=== PATIENT | female | born 1935 | race Caucasian/White ===

== ENCOUNTER 2017-05-17 15:42 | Observation (INO) | payer OTHER ==
[~2017-05-17] VITALS: Ht 160 cm; Wt 59.4 kg
[~2017-05-17 15:42] MED LIST: ALPRAZOLAM0.25 MG PO; GABAPENTIN100 MG PO; HYDROCHLOROTH12.5 MG PO; INDOMETHACIN25 MG PO; NEXIUM40 MG PO; PAROXETINE HCL30 MG PO; PROMETHAZINE HC25 M1 PO; SIMVASTATIN40 MG PO; TOPROL XL25 MG PO; ULTRAM 50MG50 MG PO; ZESTRIL20 MG PO
[2017-05-17 16:15] LABS: BASOPHILS % 0.4 % (0.0-1.0); EOSINOPHILS # (AUTO) 0.1 (0.0-0.4); EOSINOPHILS % 1.3 % (0.0-6.0); HEMATOCRIT 33.6 % (34.2-44.1); HEMOGLOBIN 10.8 g/dL (12.0-16.0); LYMPHOCYTES % 13.4 % (18.0-39.1); MEAN CORPUSCULAR HEMOGLOBIN 26.3 pg (28-32); MEAN CORPUSCULAR HGB CONC 32.1 g/dL (31-35); MONOCYTES # (AUTO) 0.6 (0.2-0.8); MONOCYTES % 7.2 % (4.4-11.3); NEUTROPHILS # (AUTO) 5.9 (2.1-6.9); NEUTROPHILS % 77.4 % (38.7-80.0); PLATELET COUNT 226 x10e3/uL (140-360); RED CELL DISTRIBUTION WIDTH 15.4 % (11.7-14.4)
[2017-05-17] MEDS ORDERED: ASPIRIN 81 MG CHEW TAB PO ONE (16:15)
[2017-05-17 16:20] LABS: INR 1.11; PROTHROMBIN TIME 13.5 seconds (11.9-14.5)
[2017-05-17 16:25] LABS: PARTIAL THROMBOPLASTIN TIME 53.2 seconds (23.8-35.5)
[2017-05-17 16:27] LABS: ALBUMIN 3.5 g/dL (3.5-5.0); ANION GAP 12.5 mmol/L (8-16); CALCIUM 8.8 mg/dL (8.4-10.2); CREATININE, SERUM 0.93 mg/dL (0.57-1.11); POTASSIUM 3.5 mmol/L (3.5-5.1)
[2017-05-17 16:34] LABS: CREATINE KINASE MB 1.3 ng/mL (0.00-5.00)
--- NOTE | 2017-05-17 16:35 | Diagnostic Imaging Report ---
PROCEDURE: CHEST SINGLE (PORTABLE) 1620 hrs. COMPARISON: 05/31/14 INDICATIONS: CHEST PAIN FINDINGS: LUNGS: Diffusely hyperinflated. Pulmonary veins have increased in size in the interim. The interstitium is mildly prominent but appears chronic. No mass or consolidation. PLEURA: No effusions or pneumothorax. HEART \T\ MEDIASTINUM: The heart is mildly enlarged. The aorta is ectatic. Pulmonary con are prominent, similar to previous exam BONES \T\ SOFT TISSUES: No focal osseous lesions. Soft tissues are unremarkable.. CONCLUSION: 1. Pulmonary hyperinflation suggestive of small airway disease. 2. Pulmonary venous hypertension has progressed in the interim. Prominence of the pulmonary con are suggestive of pulmonary artery hypertension. 3. Mild cardiomegaly. No evidence of CHF. Dictated by: Latonya Barajas M.D. on 05/17/2017 at 16:45 Electronically approved by: Latonya Barajas M.D. on 05/17/2017 at 16:45
[2017-05-17] MEDS ORDERED: DILTIAZEM HCL 5 MG/ML 5 ML VIAL IV STA (16:55)
[2017-05-17] MEDS ORDERED: AMLODIPINE BESY10 MG PO (17:13)
[2017-05-17] MEDS ORDERED: ASPIR 8181 MG PO (17:13)
[2017-05-17] MEDS ORDERED: DONEPEZIL HCL10 MG PO (17:13)
[2017-05-17] MEDS ORDERED: MULTIPLE VITAM1 EAC2 PO (17:13)
[2017-05-17] MEDS ORDERED: CLARITAN PO (17:13)
[2017-05-17] MEDS ORDERED: DILTIAZEM HCL 100 ML IV STA (17:17)
[2017-05-17 17:27] LABS: BILIRUBIN,URINE NEGATIVE (NEGATIVE); CLARITY,URINE HAZY (CLEAR); COLOR,URINE YELLOW (YELLOW); KETONES,URINE NEGATIVE (NEGATIVE); LEUKOCYTE ESTERASE ,URINE TRACE (NEGATIVE); URINE UROBILINOGEN 0.2 mg/dL (0.2 - 1)
[2017-05-17 17:28] LABS: NITRITE,URINE POSITIVE (NEGATIVE); PROTEIN,URINE DIPSTICK TRACE (NEGATIVE)
[2017-05-17] MEDS ORDERED: ENOXAPARIN SODIUM INJ 100 MG/ML SYR SC SCH (17:30)
[2017-05-17 17:46] LABS: BACTERIA,URINE MODERATE /HPF; EPITHELIAL CELLS,URINE FEW /LPF; WBC,URINE (MAN) 0-5 /HPF (0-5)
[2017-05-17] MEDS: ENOXAPARIN INJ 80 MG/0.8 ML SYR SC SCH (17:58)
[2017-05-17] MEDS ORDERED: DILTIAZEM HCL IV SOLN 125 MG in SODIUM CHLORIDE 0.9% 100 ML IV SCH ×4 (18:00)
[2017-05-17] MEDS: SODIUM CHLORIDE 0.9% 1000ML 1,000 ML IV SCH (18:19)
[2017-05-17] MEDS ORDERED: ONDANSETRON HCL INJ 2 MG/ML VIAL IV PRN (19:30)
[2017-05-17] MEDS ORDERED: NITROGLYCERIN 0.4 MG SUBL SL PRN (19:30)
[2017-05-17] MEDS: CEFTRIAXONE SOD 1 GM VIAL IV SCH (20:33)
[2017-05-17] MEDS: FAMOTIDINE 20 MG TAB PO SCH (20:33)
[2017-05-17 22:45] VITALS: BP 160/67
[2017-05-18] VITALS (8 sets, daily range): BP systolic 148–164; BP diastolic 67–76
[2017-05-18 00:58] LABS: CREATINE KINASE MB 2.6 ng/mL (0.00-5.00)
[2017-05-18] MEDS: SODIUM CHLORIDE 0.9% 1000ML 1,000 ML IV SCH (02:28)
[2017-05-18] MEDS: ENOXAPARIN INJ 80 MG/0.8 ML SYR SC SCH (05:19)
[2017-05-18 06:20] LABS: BASOPHILS % 0.3 % (0.0-1.0); EOSINOPHILS # (AUTO) 0.1 (0.0-0.4); HEMATOCRIT 28.8 % (34.2-44.1); HEMOGLOBIN 9.3 g/dL (12.0-16.0); LYMPHOCYTES # (AUTO) 1.2 (1.0-3.2); LYMPHOCYTES % 19.1 % (18.0-39.1); MEAN CORPUSCULAR HEMOGLOBIN 26.3 pg (28-32); MEAN CORPUSCULAR HGB CONC 32.3 g/dL (31-35); MEAN CORPUSCULAR VOLUME 81.6 fL (81-99); MONOCYTES # (AUTO) 0.5 (0.2-0.8); MONOCYTES % 8.8 % (4.4-11.3); NEUTROPHILS # (AUTO) 4.2 (2.1-6.9); NEUTROPHILS % 69.5 % (38.7-80.0); PLATELET COUNT 210 x10e3/uL (140-360); RED BLOOD COUNT 3.53 x10e6/uL (3.6-5.1); RED CELL DISTRIBUTION WIDTH 15.6 % (11.7-14.4)
[2017-05-18 06:42] LABS: ANION GAP 13.4 mmol/L (8-16); BLOOD UREA NITROGEN 12 mg/dL (7-26); BUN/CREATININE RATIO 14 (6-25); CALCIUM 8.3 mg/dL (8.4-10.2); CARBON DIOXIDE 22 mmol/L (22-29); CHLORIDE 110 mmol/L (98-107); CHOL/HDL RATIO 3.2 (3.0-3.6); CHOLESTEROL 157 MD/DL (0-199); CREATININE, SERUM 0.85 mg/dL (0.57-1.11); EST GLOMERULAR FILTRATION RATE > 60 ML/MIN (60-); GLUCOSE 87 mg/dL (74-118); HDL CHOLESTEROL 49 MG/DL (40-60); LDL CHOLESTEROL 92 MG/DL (60-130); MAGNESIUM 1.7 MG/DL (1.3-2.1); POTASSIUM 3.4 mmol/L (3.5-5.1); SODIUM 142 mmol/L (136-145); TRIGLYCERIDES 78 MG/DL (0-149)
[2017-05-18] MEDS: FAMOTIDINE 20 MG TAB PO SCH ×2 (07:30→20:13)
--- NOTE | 2017-05-18 08:48 | History and Physical ---
PCP: Dr. Karl Ball CHIEF COMPLAINT: Palpitations, PAF, and acute exacerbation of COPD. HISTORY: Patient is an 81-year-old female who came in with some dizziness and palpitations. The patient had a brief paroxysmal atrial fibrillation that converted to normal sinus rhythm after Cardizem treatment. The patient is stable now. She is very hard of hearing. The patient has no wheezing now. She is not having any shortness of breath. As a matter of fact, she seem to be at baseline. PAST MEDICAL HISTORY: Hypertension, baseline dementia, anxiety disorder, neuropathy, COPD, former smoker. PAST SURGICAL HISTORY: Noncontributory. SOCIAL HISTORY: Patient lives with her son. She is not smoking now. She has no alcohol consumption. ALLERGIES: MERCUROCHROME, PLASTIC TAPE, IODINE, MORPHINE, AND . HOME MEDICATIONS: Norvasc, aspirin, Aricept, Neurontin, Zestril, metoprolol succinate, multivitamins, Paxil, and Claritin. REVIEW OF SYSTEMS: No chest pain. No shortness of breath. She seems comfortable. PHYSICAL EXAMINATION VITAL SIGNS: Temperature is 98, blood pressure 154/73, pulse rate 81, respirations 18. GENERAL: The patient is not in acute distress. He is awake. HEENT: Normocephalic, atraumatic and anicteric. NECK: Supple grossly. PULMONARY: Clear. CARDIOVASCULAR: Regular rate and rhythm. ABDOMEN: Soft and unremarkable. EXTREMITIES: No gross cyanosis or edema. NEUROLOGIC: No gross focal deficit. LABORATORY: WBC is 6, hemoglobin 9.3, hematocrit is 28.8, and platelets 210,000. Chemistry: Sodium is 142, potassium 3.4, chloride 110, bicarb 22, BUN 12, creatinine 0.8, glucose is 87. Cardiac enzymes were negative. BNP is 439. LDL is 92. Chest x-ray consistent with COPD. IMPRESSION 1. Paroxysmal atrial fibrillation. 2. Acute asthma and chronic obstructive pulmonary disease, much improved. 3. Palpitations, resolved. 4. Very hard of hearing baseline. 5. Hypertension. 6. Dementia. PLAN: Start the patient on inhaler of Xopenex p.r.n. Rocephin 1 g daily. Azithromycin p.o. Resume home medications. Monitor the patient closely. Will obtain CT of the chest without contrast for now. Job#: [id number] [facility]
[2017-05-18 08:53] LABS: THYROID STIMULATING HORMONE 3.646 uIU/mL (0.350-4.940)
[2017-05-18] MEDS ORDERED: GABAPENTIN 100 MG CAP PO SCH ×2 (09:00→21:00)
[2017-05-18] MEDS: MULTIVITAMINS/MINERALS TAB PO SCH (09:00)
[2017-05-18] MEDS: SENNA-S TABLET PO SCH (09:00)
[2017-05-18] MEDS: PAROXETINE HCL 20 MG TAB PO SCH (09:00)
[2017-05-18] MEDS ORDERED: POTASSIUM CHLORIDE 10 MEQ TABCR PO ONE (09:00)
[2017-05-18] MEDS: DILTIAZEM HCL 120 MG CAP CD PO SCH (09:00)
[2017-05-18] MEDS: ASPIRIN 81 MG ENTERIC COATED PO SCH (09:00)
[2017-05-18 09:33] LABS: CREATINE KINASE MB 2.3 ng/mL (0.00-5.00)
--- NOTE | 2017-05-18 09:34 | Consultation ---
DATE OF CONSULTATION: May 18, 2017 CARDIOLOGY CONSULTATION REASON FOR CONSULTATION: Paroxysmal AFib. HPI: This is an 81-year-old female that presented with palpitations, near syncope and chest pain. According to the patient and son at the bedside, she started having irregular rapid heartbeats accompanied with dizziness and weakness. She stated that her dizziness got worse by ambulation and gets better with rest. She described the chest discomfort as a constant pressure on a scale of 4/10 with no radiation. She denies any diaphoresis, any nausea, vomiting, or shortness of breath. According to the son also, she just saw her composition weatherboard installer at the [place] [facility] in April, and everything was okay. Her EKG showed normal sinus rhythm with some PACs. Troponin was 0.5 positive. PAST MEDICAL HISTORY: Dementia, hypertension, hyperlipidemia, history of anemia. PAST SURGICAL HISTORY: Hysterectomy, appendectomy and cholecystectomy. FAMILY HISTORY: Positive for high blood pressure, cancer, CAD, and TIAs. SOCIAL HISTORY: No smoking. No drinking. She lives at senior assisted-living apartment, but right now she is staying with her son. MEDICATION: See med list. ALLERGIES: SEE CHART. SHE HAS MULTIPLE ALLERGIES. REVIEW OF SYSTEMS: Negative except those mentioned above. PHYSICAL EXAMINATION VITAL SIGNS: Temperature 98, heart rate 81, blood pressure 154/73, respirations 17, oxygen saturation 95% on room air. GENERAL: She is on alert and awake, but hard of hearing. HEENT: Mucous membrane moist. NECK: Supple. LUNGS: Bilateral clear to auscultation. CARDIOVASCULAR: Irregular. ABDOMEN: Soft. NEUROLOGICAL: Intact. She is able to move all extremities. EXTREMITIES: Bilateral lower extremities with no edema. LABS: Sodium 142, potassium 3.4, chloride 110, CO2 22, BUN 12, creatinine 0.85, glucose 87. White blood cells 6.01, hemoglobin 9.3, hematocrit 28.8, and platelets 210,000. PT 13.5, PTT 53.2 and INR 1.11. IMPRESSION 1. Chest pain. 2. Paroxysmal atrial fibrillation. 3. Elevated troponin. 4. Hypertension. 5. Anemia. 6. History of dementia. ASSESSMENT AND PLAN: She is pending an echocardiogram to assess the LV and the valve function. Chest x-ray showing some evidence of COPD and pulmonary hypertension. Her heart rate is back to normal sinus rhythm with some PACs. She was already started on Xarelto by the primary doctor. I discussed the implication of the elevated troponin to the son, and recommended a Lexiscan Myoview to rule out any occlusion. The son stated that he will wait and follow up with the composition weatherboard installer as an outpatient. Potassium has been replaced. She is pending TSH and BNP was 439. Troponin could be elevated also due to the AFib with RVR. She was given Cardizem in the ER. Further cardiac workup pending clinical course. Thank you for this consultation. DICTATED BY GEOVANNA DEAL NP Job#: [id number] [facility]
--- NOTE | 2017-05-18 13:35 | Diagnostic Imaging Report ---
PROCEDURE: CT CHEST WITHOUT CONTRAST CT scan of the chest WITHOUT intravenous contrast, using standard protocol. TECHNIQUE: The chest was scanned utilizing a multidetector helical scanner from the apex to the level of the adrenal glands. No IV contrast was administered per physician's request. Coronal and sagittal multiplanar reformations were obtained. COMPARISON: [facility], DX, CHEST SINGLE (PORTABLE), 05/17/2017, 16:20. INDICATIONS: SHORTNESS OF BREATH FINDINGS: Exam mildly limited by breathing motion artifact in the lower lobes Lines/tubes: None. Lungs and Airways: Intralobular septal thickening, predominantly noted in the upper lobes (series 3, image 24). Diffuse groundglass opacities noted predominantly in the central aspect of bilateral upper and lower lobes extending from the con, with relative sparing of the periphery. No consolidation. Mild compressive atelectasis of the right lower lobe. 2 mm pulmonary nodule in the right upper lobe (series 3, image 25). No other pulmonary nodules. Linear opacities in bilateral lower lobes, likely represent subsegmental atelectasis or scarring. Moderate central bronchial wall thickening, worse in the right lower lobe, left lower lobe and right middle lobe (for example, series 3, image 66). Prominence of the pulmonary vessels, particularly in the lower lobes. Increased soft tissue density surrounding the proximal right lower lobe bronchus (series 2, images 63-65). Pleura: Trace right pleural effusion. Heart and mediastinum: Thyroid is unremarkable. Moderate cardiomegaly, with prominence of the left atrium. Atherosclerotic calcification of the aortic valves, thoracic aorta and coronary arteries. Aorta is non-aneurysmal. Main pulmonary artery is enlarged, measuring 4.0 cm. Lymph nodes: No mediastinal adenopathy. Enlarged left axillary lymph node, measuring 1.0 cm in short axis. No internal mammary nodes. Difficult to assess for hilar adenopathy given the lack of intravenous contrast. Abdomen: Limited views of the upper abdomen show no abnormality within the visualized liver, spleen or pancreas. Cholecystectomy clips. Thickening of the stomach fundus, which may be partly due to under distention. Bones: No aggressive lytic lesions. Multilevel degenerative disc changes in the thoracic spine. 1.3 cm asymmetric soft tissue density in the left breast, with punctate calcification (series 2, image 71 and coronal image 49). Punctate calcification is also noted in the right breast (series 2, image 64). IMPRESSION: 1. Findings in both lungs suggestive of interstitial edema, in the setting of moderate cardiomegaly. 2. Increased soft tissue density surrounding the proximal right lower lobe bronchus, which is indeterminate. Adenopathy, prominent vessels or mass are diagnostic considerations, however, exam is limited by lack of intravenous contrast. 3. Moderate central bronchial wall thickening, predominantly in the lower lobes, and right middle lobe, likely reflect sequela of chronic bronchitis. 4. Enlarged left axillary lymph node. There is a 1.3 cm asymmetric soft tissue density in the left breast. Recommend mammography for further evaluation, given the diagnostic consideration of breast neoplasm. Bryon Alvarez M.D. Dictated by: Bryon Alvarez M.D. on 05/18/2017 at 13:45 Electronically approved by: Bryon Alvarez M.D. on 05/18/2017 at 13:45
[2017-05-18] MEDS ORDERED: RIVAROXABAN 10 MG TABLET PO SCH (17:00)
[2017-05-18] MEDS: CEFTRIAXONE SOD 1 GM VIAL IV SCH (20:13)
[2017-05-18] MEDS ORDERED: ACETAMINOPHEN 325 MG TAB PO PRN (21:00)
[2017-05-18] MEDS ORDERED: DONEPEZIL HCL 5 MG TAB PO SCH (21:00)
[2017-05-19] VITALS: BP 158/79
[2017-05-19 05:00] VITALS: BP 159/74
[2017-05-19 06:58] LABS: BASOPHILS % 0.6 % (0.0-1.0); EOSINOPHILS # (AUTO) 0.2 (0.0-0.4); EOSINOPHILS % 3.4 % (0.0-6.0); HEMATOCRIT 30.1 % (34.2-44.1); HEMOGLOBIN 9.8 g/dL (12.0-16.0); LYMPHOCYTES # (AUTO) 1.2 (1.0-3.2); LYMPHOCYTES % 25.2 % (18.0-39.1); MEAN CORPUSCULAR HEMOGLOBIN 26.4 pg (28-32); MEAN CORPUSCULAR HGB CONC 32.6 g/dL (31-35); MEAN CORPUSCULAR VOLUME 81.1 fL (81-99); MONOCYTES # (AUTO) 0.4 (0.2-0.8); MONOCYTES % 9.2 % (4.4-11.3); NEUTROPHILS # (AUTO) 2.9 (2.1-6.9); NEUTROPHILS % 61.2 % (38.7-80.0); PLATELET COUNT 220 x10e3/uL (140-360); RED BLOOD COUNT 3.71 x10e6/uL (3.6-5.1); RED CELL DISTRIBUTION WIDTH 15.3 % (11.7-14.4)
[2017-05-19 07:23] LABS: ANION GAP 11.6 mmol/L (8-16); BLOOD UREA NITROGEN 8 mg/dL (7-26); BUN/CREATININE RATIO 10 (6-25); CALCIUM 8.8 mg/dL (8.4-10.2); CARBON DIOXIDE 26 mmol/L (22-29); CHLORIDE 107 mmol/L (98-107); CREATININE, SERUM 0.79 mg/dL (0.57-1.11); EST GLOMERULAR FILTRATION RATE > 60 ML/MIN (60-); GLUCOSE 90 mg/dL (74-118); POTASSIUM 3.6 mmol/L (3.5-5.1); SODIUM 141 mmol/L (136-145)
[2017-05-19 07:37] VITALS: BP 169/84
[2017-05-19] MEDS: MULTIVITAMINS/MINERALS TAB PO SCH (08:30)
[2017-05-19] MEDS: PAROXETINE HCL 20 MG TAB PO SCH (08:30)
[2017-05-19] MEDS: DILTIAZEM HCL 120 MG CAP CD PO SCH (08:30)
[2017-05-19] MEDS: ASPIRIN 81 MG ENTERIC COATED PO SCH (08:30)
[2017-05-19] MEDS: SENNA-S TABLET PO SCH (08:30)
[2017-05-19] MEDS: FAMOTIDINE 20 MG TAB PO SCH (08:30)
--- NOTE | 2017-05-19 09:24 | Discharge Summary ---
Patient was placed in observation. PRIMARY CARE PHYSICIAN: Dr. Karl Ball SECURITY CONTROL CENTER OPERATOR: Dr. Tong Solis FINAL DIAGNOSES 1. Acute bronchitis associated with upper respiratory infection, wheezing and shortness of breath. 2. Paroxysmal atrial fibrillation secondary to the above. 3. Baseline hypertension. 4. Pulmonary congestion secondary to multiple factors as above. Patient is an 81-year-old female came in with cough and shortness of breath. She also had atrial fibrillation, paroxysmal. However, after Cardizem her atrial fibrillation converted to normal sinus rhythm. The patient is doing much better now. She did have some near passing out, but most likely secondary to upper respiratory infection. She is doing better with antibiotics. The microbiology urinary culture was contamination. On urinalysis, she does have trace leukocyte esterase, moderate bacteria. Hematology: WBC is 4.7, hemoglobin 9.8, hematocrit 30.2, and platelets is 220,000. Her iron level is low due to her chronic anemia and there is no sign of bleed. Patient is otherwise stable. Chemistry panel unremarkable. Imaging test: CT of the chest showed that the patient does have bronchitis predominately in the lower lobe. She does have a 1.3 cm soft tissue density in the left breast where she is instructed to have a mammogram if not yet done as an outpatient. The patient has some interstitial edema as mentioned. Her ejection fraction on echocardiogram was 60%. There is left atrial enlargement. There is moderate to severe mitral regurgitation. The patient is otherwise stable at this time. She has been cleared by Dr. Solis for discharge home. Follow up with [place] physician and cardiology. Patient is instructed have a mammogram if not yet done for the soft tissue density in the left breast. The patient is otherwise stable. The patient will be discharged home today. Resume home medications with adjustment of: 1. Lisinopril from 40 to 20 mg. 2. She will get prednisone 10 mg once a day for 3 days and then 5 mg once a day for 3 days and then stop. 3. Levaquin 250 mg daily for 5 days. 4. Lopressor 50 mg b.i.d. 5. Lasix 20 mg daily. 6. Potassium 10 mEq daily. 7. Tessalon Perle 100 mg q.4 h. p.r.n. for cough. 8. ProAir 1-2 puffs q.4 h. as needed. Patient is stable to discharge home today. She will stop the Toprol-Xl 25 mg and take Lopressor 50 mg as mentioned. Patient is stable. Job#: [id number] [facility]
[2017-05-19 11:38] VITALS: BP 160/80
[2017-05-19] MEDS ORDERED: LOPRESSOR25 MG PO (12:40)
[2017-05-19] MEDS ORDERED: LEVAQUIN250 MG PO (12:40)
[2017-05-19] MEDS ORDERED: POTASSIUM CHLO10 ME1 PO (12:40)
[2017-05-19] MEDS ORDERED: LASIX20 MG PO (12:40)
[2017-05-19] MEDS ORDERED: TESSALON PERLE100 MG PO (12:41)
[2017-05-19] MEDS ORDERED: PROAIR HFA INH8.5 GM IH (12:42)
== END 2017-05-19 13:32 | disposition home or self-care (01) ==
LOC: ER 15:42 → ERHOLD 20:03 → IMCU 22:08
PROVIDERS: ADMIT Internal Medicine; ATTEND Internal Medicine
DX: J44.0 Chronic obstructive pulmonary disease with (acute) lower respiratory infection (principal); I48.0 Paroxysmal atrial fibrillation; I95.89 Other hypotension; I20.9 Angina pectoris, unspecified; F03.90 Unspecified dementia, unspecified severity, without behavioral disturbance, psychotic disturbance, mood disturbance, and anxiety; H91.90 Unspecified hearing loss, unspecified ear; D64.9 Anemia, unspecified; J20.9 Acute bronchitis, unspecified; I10 Essential (primary) hypertension; R09.89 Other specified symptoms and signs involving the circulatory and respiratory systems; I34.0 Nonrheumatic mitral (valve) insufficiency
CPT/HCPCS: 36415 ×3; 71045; 71250; 80048 ×2; 80053; 80061; 81001; 82550 ×2; 82553 ×2; 82607; 82746; 83540; 83735; 83880; 84443; 84466; 84484 ×2; 85025 ×3; 85610; 85730; 87086; 87186; 87400; 93005; 93306; 99284; G0378 ×3; J0696 ×2; J1650 ×2; J7030 ×2; J7050

== ENCOUNTER 2017-09-24 14:52 | Inpatient (IN) | payer OTHER ==
[~2017-09-24] VITALS: Ht 152.4 cm; Wt 60.6 kg
[~2017-09-24 14:52] MED LIST changes: +AMLODIPINE BESY10 MG PO; +ASPIR 8181 MG PO; +CLARITAN PO; +DONEPEZIL HCL10 MG PO; +LASIX20 MG PO; +LEVAQUIN250 MG PO; +LOPRESSOR25 MG PO; +MULTIPLE VITAM1 EAC2 PO; +POTASSIUM CHLO10 ME1 PO; +PROAIR HFA INH8.5 GM IH; +TESSALON PERLE100 MG PO
[2017-09-24] MEDS ORDERED: SODIUM CHLORIDE 0.9% 1000ML 1,000 ML IV STA (15:22)
[2017-09-24] MEDS ORDERED: DILTIAZEM HCL 60 MG TAB PO ONE (15:30)
[2017-09-24 15:34] LABS: BASOPHILS % 0.3 % (0.0-1.0); EOSINOPHILS # (AUTO) 0.1 (0.0-0.4); EOSINOPHILS % 1.5 % (0.0-6.0); LYMPHOCYTES % 14.3 % (18.0-39.1); MEAN CORPUSCULAR HEMOGLOBIN 25.5 pg (28-32); MEAN CORPUSCULAR HGB CONC 31.3 g/dL (31-35); MEAN CORPUSCULAR VOLUME 81.6 fL (81-99); MONOCYTES # (AUTO) 0.6 (0.2-0.8); MONOCYTES % 9.2 % (4.4-11.3); NEUTROPHILS # (AUTO) 4.9 (2.1-6.9); NEUTROPHILS % 74.2 % (38.7-80.0); PLATELET COUNT 248 x10e3/uL (140-360); RED BLOOD COUNT 3.92 x10e6/uL (3.6-5.1); RED CELL DISTRIBUTION WIDTH 15.6 % (11.7-14.4)
[2017-09-24 15:41] LABS: INR 1.2; PROTHROMBIN TIME 14.3 seconds (11.9-14.5)
[2017-09-24 15:42] LABS: PARTIAL THROMBOPLASTIN TIME 53.6 seconds (23.8-35.5)
--- NOTE | 2017-09-24 15:43 | Diagnostic Imaging Report ---
PROCEDURE: A single AP view of the chest. COMPARISON: Patients [facility], CT, CT CHEST WO, 05/18/2017, 10:24. INDICATIONS: AFIB, SOB PER FAMILY, PT AMS UNABLE TO FOLLOW INSTRUCTIONS FINDINGS: See impression. IMPRESSION: 1. moderate cardiomegaly, with central pulmonary venous congestion and bilateral perihilar interstitial opacities consistent with interstitial edema. Findings likely represent decompensated CHF. 2. Likely small right pleural effusion and associated right lower lobe atelectasis. 3. No definite consolidation. 4. No acute bony abnormalities. Bryon Alvarez M.D. Dictated by: Bryon Alvarez M.D. on 09/24/2017 at 15:47 Electronically approved by: Bryon Alvarez M.D. on 09/24/2017 at 15:47
[2017-09-24 15:50] LABS: ALANINE AMINOTRANSFERASE 13 IU/L (0-55); ALBUMIN 3.8 g/dL (3.5-5.0); ALBUMIN/GLOBULIN RATIO 1.1 (0.8-2.0); ALKALINE PHOSPHATASE 96 IU/L (40-150); ANION GAP 12.4 mmol/L (8-16); BLOOD UREA NITROGEN 17 mg/dL (7-26); BUN/CREATININE RATIO 13 (6-25); CALCIUM 9.3 mg/dL (8.4-10.2); CARBON DIOXIDE 25 mmol/L (22-29); CHLORIDE 100 mmol/L (98-107); CREATINE KINASE 53 IU/L (29-168); CREATININE, SERUM 1.28 mg/dL (0.57-1.11); EST GLOMERULAR FILTRATION RATE 40 ML/MIN (60-); GLUCOSE 96 mg/dL (74-118); POTASSIUM 4.4 mmol/L (3.5-5.1); SODIUM 133 mmol/L (136-145)
[2017-09-24] MEDS ORDERED: DIGOXIN INJ 0.25 MG/ML 2 ML AMP IV ONE ×3 (16:15→19:00)
[2017-09-24] MEDS ORDERED: DIGOXIN INJ 0.25 MG/ML 2 ML AMP IV NR (17:45)
[2017-09-24] MEDS ORDERED: FUROSEMIDE INJ 10 MG/ML 4 ML VIAL IV SCH ×2 (18:00→21:00)
[2017-09-24] MEDS ORDERED: ASPIRIN 81 MG CHEW TAB PO ONE (18:15)
[2017-09-24] MEDS ORDERED: ENOXAPARIN SODIUM INJ 100 MG/ML SYR SC SCH (18:15)
[2017-09-24] MEDS: ENOXAPARIN SOD INJ 60 MG/0.6 ML SYR SC SCH (19:00)
[2017-09-24 20:00] VITALS: BP 134/78
[2017-09-24 20:18] VITALS: BP 134/78
[2017-09-24] MEDS ORDERED: CLARITIN-D 241 EACH PO (20:39)
[2017-09-24] MEDS ORDERED: ASPIRIN325 MG PO (20:39)
[2017-09-24] MEDS ORDERED: CLARITIN10 MG PO (20:41)
[2017-09-24] MEDS ORDERED: METOPROLOL TARTRATE 25 MG TAB PO SCH (21:00)
[2017-09-24] MEDS ORDERED: METOPROLOL TARTRATE 50 MG TAB PO SCH (21:00)
[2017-09-24] MEDS ORDERED: METOPROLOL TARTRATE INJ 1 MG/ML VIAL IV PRN (21:00)
[2017-09-24] MEDS ORDERED: MAGNESIUM SULFATE 2GM/50ML 50 ML IV ONE (21:00)
[2017-09-24 21:01] LABS: BILIRUBIN,URINE NEGATIVE (NEGATIVE); CLARITY,URINE CLEAR (CLEAR); COLOR,URINE YELLOW (YELLOW); KETONES,URINE NEGATIVE (NEGATIVE); LEUKOCYTE ESTERASE ,URINE NEGATIVE (NEGATIVE); NITRITE,URINE NEGATIVE (NEGATIVE); PROTEIN,URINE DIPSTICK NEGATIVE (NEGATIVE); URINE UROBILINOGEN 0.2 mg/dL (0.2 - 1)
[2017-09-24 21:14] LABS: EPITHELIAL CELLS,URINE RARE /LPF; MUCUS,URINE FEW (RARE); RBC,URINE 0-5 /HPF (0-5); WBC,URINE (MAN) 0-5 /HPF (0-5)
[2017-09-24] MEDS ORDERED: AMIODARONE HCL 200 MG TAB PO ONE (21:30)
[2017-09-24 21:45] VITALS: BP 134/78
[2017-09-24] MEDS: GABAPENTIN 100 MG CAP PO SCH (21:45)
[2017-09-24] MEDS: ACETAMINOPHEN 325 MG TAB PO PRN (21:45)
[2017-09-24 23:52] LABS: CREATINE KINASE MB 1.6 ng/mL (0-5.0)
[2017-09-25] VITALS (8 sets, daily range): BP systolic 101–131; BP diastolic 66–81
[2017-09-25] MEDS: ENOXAPARIN SOD INJ 60 MG/0.6 ML SYR SC SCH (06:18)
[2017-09-25 07:34] LABS: BASOPHILS % 0.2 % (0.0-1.0); EOSINOPHILS # (AUTO) 0.1 (0.0-0.4); EOSINOPHILS % 1.9 % (0.0-6.0); HEMATOCRIT 28.4 % (34.2-44.1); HEMOGLOBIN 9.1 g/dL (12.0-16.0); LYMPHOCYTES # (AUTO) 0.9 (1.0-3.2); LYMPHOCYTES % 21.2 % (18.0-39.1); MEAN CORPUSCULAR HEMOGLOBIN 26.1 pg (28-32); MEAN CORPUSCULAR VOLUME 81.4 fL (81-99); MONOCYTES # (AUTO) 0.4 (0.2-0.8); MONOCYTES % 8.8 % (4.4-11.3); NEUTROPHILS # (AUTO) 2.8 (2.1-6.9); NEUTROPHILS % 67.7 % (38.7-80.0); PLATELET COUNT 229 x10e3/uL (140-360); RED BLOOD COUNT 3.49 x10e6/uL (3.6-5.1); RED CELL DISTRIBUTION WIDTH 15.4 % (11.7-14.4)
[2017-09-25 07:50] LABS: CALCIUM 8.7 mg/dL (8.4-10.2); CREATININE, SERUM 1.11 mg/dL (0.57-1.11)
[2017-09-25 08:18] LABS: CREATINE KINASE MB 1.3 ng/mL (0-5.0)
[2017-09-25] MEDS ORDERED: NON-FORMULARY MEDICATION (Paroxetine Hcl 30 MG) PO SCH (09:00)
[2017-09-25] MEDS ORDERED: FUROSEMIDE INJ 10 MG/ML 4 ML VIAL IV SCH (09:00)
[2017-09-25] MEDS ORDERED: LISINOPRIL 20 MG TAB PO SCH (09:00)
[2017-09-25] MEDS: AMIODARONE HCL 200 MG TAB PO SCH (10:00)
[2017-09-25] MEDS: LORATADINE 10 MG TAB PO SCH (10:00)
[2017-09-25] MEDS: AMLODIPINE BESYLATE 10 MG TAB PO SCH (10:00)
[2017-09-25] MEDS: PAROXETINE HCL 20 MG TAB PO SCH (10:00)
[2017-09-25] MEDS: POTASSIUM CHLORIDE 10 MEQ TABCR PO SCH (10:00)
[2017-09-25 10:37] LABS: CREATINE KINASE MB 1.3 ng/mL (0-5.0)
[2017-09-25] MEDS: MULTIVITAMINS/MINERALS TAB PO SCH (11:05)
[2017-09-25] MEDS ORDERED: MULTIVITAMIN PO SCH (11:30)
[2017-09-25] MEDS ORDERED: NON-FORMULARY MEDICATION (Donepezil Hcl 10 MG) PO SCH (11:30)
[2017-09-25] MEDS ORDERED: DONEPEZIL HCL 5 MG TAB PO SCH ×2 (11:30)
[2017-09-25] MEDS ORDERED: ASPIRIN 325 MG TAB PO SCH (11:30)
[2017-09-25] MEDS ORDERED: METOPROLOL TARTRATE INJ 1 MG/ML VIAL IV PRN (13:00)
[2017-09-25] MEDS ORDERED: NITROGLYCERIN 0.4 MG SUBL SL PRN (13:00)
[2017-09-25] MEDS ORDERED: HYDRALAZINE HCL 20 MG/ML VIAL IV PRN ×2 (13:00→13:15)
[2017-09-25] MEDS: METOPROLOL TARTRATE 50 MG TAB PO SCH ×2 (13:15→17:26)
[2017-09-25 13:23] LABS: CHOL/HDL RATIO 2.6 (3.0-3.6); MAGNESIUM 2.1 MG/DL (1.3-2.1); PHOSPHORUS 3.4 MG/DL (2.3-4.7)
[2017-09-25 13:42] LABS: THYROID STIMULATING HORMONE 3.833 uIU/mL (0.350-4.940)
--- NOTE | 2017-09-25 15:05 | History and Physical ---
PCP: Dr. Karl Ball. BONDING MACHINE SETTER: Dr. Tong Solis. CHIEF COMPLAINT: Rapid ventricular rate response, atrial fibrillation. HISTORY OF PRESENT ILLNESS: Patient is an 82-year-old female with PAF. The patient came in with heart rate in the 130-140, atrial fibrillation. The patient has baseline atrial fibrillation. She also has a history of asthma and chronic obstructive pulmonary disease as well. The patient complained of increasing shortness of breath. She has also had palpitation. At baseline, she is very hard of hearing. The patient is stable. She is admitted to the hospital for rate control. PAST MEDICAL HISTORY: Paroxysmal atrial fibrillation, asthma, chronic obstructive pulmonary disease, hard of hearing, hypertension, and progressive dementia. PAST SURGICAL HISTORY: Appendectomy, hysterectomy, and cholecystectomy. PAST SOCIAL HISTORY: Patient lives at home with her family. She does not smoke or use alcohol. No recreational drugs. ALLERGIES: TO SHRIMP, LATEX, MORPHINE, . HOME MEDICATIONS: Norvasc, aspirin, Aricept, Lasix, gabapentin, lisinopril, Claritin, metoprolol tartrate, Paxil, potassium, and multivitamin. REVIEW OF SYSTEMS: Palpitation, but no chest pain, no shortness breath now. PHYSICAL EXAMINATION VITAL SIGNS: Temperature is 98, blood pressure 115/81, pulse rate 126, and respirations 18. GENERAL: The patient is not in acute distress. She is awake. HEENT: Normocephalic, atraumatic, and anicteric. NECK: Supple grossly. PULMONARY: Clear. CARDIOVASCULAR: Atrial fibrillation, rapid rate. ABDOMEN: Soft and unremarkable. EXTREMITIES: No cyanosis or edema. NEUROLOGIC: No focal deficit. LABORATORY: Sodium is 134, potassium 4, chloride 100, bicarb 27, BUN 16, creatinine 1.1, and glucose 78. WBC 4.2, hemoglobin 9.1, hematocrit 28.04, and platelets is 229. INR is 1.2. Liver enzymes unremarkable. IMPRESSION 1. Atrial fibrillation with rapid ventricular rate response, most likely no longer paroxysmal. 2. Multiple chronic baseline problems. PLAN: Rate control medication. Anticoagulant therapy. Monitor the patient closely. Home medications resumed. Echocardiogram. We will monitor the patient closely and adjust medications. We will follow up with consultation and recommendations. Job#: [id number] [facility]
--- NOTE | 2017-09-25 17:14 | Cardiology Report ---
DATE OF STUDY: September 25, 2017 ECHOCARDIOGRAM M-MODE: Dilated left atrium. Asymmetrical septal hypertrophy. Normal contractility. Normal mitral valve and aortic sclerosis. Normal tricuspid valve. No pericardial effusion. SECTOR SCAN: Dilated left and right atria. Asymmetrical septal hypertrophy. Septum measuring 1.60 cm, posterior wall measuring 0.9 cm. Normal ejection fraction measured at 60%. Aortic valve is sclerotic. Normal mitral and tricuspid valves. No pericardial effusion. CARDIAC DOPPLER STUDY WITH COLOR: [id number] mitral regurgitation. Trace aortic regurgitation. Moderate tricuspid regurgitation. Pulmonary artery systolic pressure estimated at 39 mmHg with mild pulmonic regurgitation. Left ventricular outflow velocities 1.7 meters per second. CONCLUSIONS 1. Asymmetrical septal hypertrophy with septum measuring 1.60 cm, posterior wall measuring 0.9 cm without systolic anterior motion of the mitral valve and without left ventricular outflow obstruction. 2. Left ventricular ejection fraction is approximately 60%. 3. Aortic sclerosis with trace aortic regurgitation. 1. [id number] mitral regurgitation with dilated left atrium. 2. Moderate tricuspid regurgitation with mild pulmonic regurgitation with borderline pulmonary hypertension. Pulmonary artery systolic pressure estimated at 39 mmHg. The right atrium is enlarged. Job#: [id number] AKU cc:CHRITSIANA WRIGHT MD
[2017-09-25] MEDS: RIVAROXABAN 20 MG TABLET PO SCH (17:26)
[2017-09-25] MEDS: ACETAMINOPHEN 325 MG TAB PO PRN (21:22)
[2017-09-25] MEDS: GABAPENTIN 100 MG CAP PO SCH (21:22)
[2017-09-26] VITALS (8 sets, daily range): BP systolic 113–131; BP diastolic 60–79
[2017-09-26 07:28] LABS: BASOPHILS % 0.4 % (0.0-1.0); EOSINOPHILS # (AUTO) 0.1 (0.0-0.4); EOSINOPHILS % 1.9 % (0.0-6.0); HEMATOCRIT 30.6 % (34.2-44.1); HEMOGLOBIN 9.9 g/dL (12.0-16.0); LYMPHOCYTES # (AUTO) 0.9 (1.0-3.2); LYMPHOCYTES % 17.7 % (18.0-39.1); MEAN CORPUSCULAR HEMOGLOBIN 25.8 pg (28-32); MEAN CORPUSCULAR HGB CONC 32.4 g/dL (31-35); MEAN CORPUSCULAR VOLUME 79.7 fL (81-99); MONOCYTES # (AUTO) 0.5 (0.2-0.8); MONOCYTES % 8.9 % (4.4-11.3); NEUTROPHILS # (AUTO) 3.7 (2.1-6.9); NEUTROPHILS % 70.9 % (38.7-80.0); PLATELET COUNT 248 x10e3/uL (140-360); RED BLOOD COUNT 3.84 x10e6/uL (3.6-5.1); RED CELL DISTRIBUTION WIDTH 15.3 % (11.7-14.4)
[2017-09-26 07:43] LABS: ANION GAP 13.7 mmol/L (8-16); CALCIUM 8.8 mg/dL (8.4-10.2); CREATININE, SERUM 1.07 mg/dL (0.57-1.11); POTASSIUM 3.7 mmol/L (3.5-5.1)
[2017-09-26 07:57] LABS: MAGNESIUM 1.8 MG/DL (1.3-2.1)
[2017-09-26 08:26] LABS: THYROID STIMULATING HORMONE 4.169 uIU/mL (0.350-4.940)
[2017-09-26] MEDS ORDERED: LISINOPRIL 10 MG TAB PO SCH (09:00)
[2017-09-26] MEDS: AMLODIPINE BESYLATE 10 MG TAB PO SCH (09:50)
[2017-09-26] MEDS: POTASSIUM CHLORIDE 10 MEQ TABCR PO SCH (09:50)
[2017-09-26] MEDS: PAROXETINE HCL 20 MG TAB PO SCH (09:50)
[2017-09-26] MEDS: AMIODARONE HCL 200 MG TAB PO SCH (09:50)
[2017-09-26] MEDS: LORATADINE 10 MG TAB PO SCH (09:50)
[2017-09-26] MEDS: METOPROLOL TARTRATE 50 MG TAB PO SCH ×2 (09:50→16:50)
[2017-09-26] MEDS: FUROSEMIDE 40 MG TAB PO SCH (09:50)
[2017-09-26 10:58] LABS: FOLATE 18.8 ng/mL (7.0-15.4)
[2017-09-26] MEDS: MULTIVITAMINS/MINERALS TAB PO SCH (12:30)
[2017-09-26] MEDS: RIVAROXABAN 20 MG TABLET PO SCH (16:52)
[2017-09-26] MEDS: GABAPENTIN 100 MG CAP PO SCH (20:37)
[2017-09-27] VITALS (7 sets, daily range): BP systolic 102–132; BP diastolic 60–84
--- NOTE | 2017-09-27 00:03 | Discharge Summary ---
"No dictation, length 0:10" Job#: [id number] [facility]
[2017-09-27] MEDS: AMIODARONE HCL 200 MG TAB PO SCH (08:56)
[2017-09-27] MEDS: LORATADINE 10 MG TAB PO SCH (08:56)
[2017-09-27] MEDS: POTASSIUM CHLORIDE 10 MEQ TABCR PO SCH (08:56)
[2017-09-27] MEDS: AMLODIPINE BESYLATE 10 MG TAB PO SCH (08:57)
[2017-09-27] MEDS: METOPROLOL TARTRATE 50 MG TAB PO SCH (08:57)
[2017-09-27] MEDS: FUROSEMIDE 40 MG TAB PO SCH (08:57)
[2017-09-27] MEDS: PAROXETINE HCL 20 MG TAB PO SCH (08:57)
[2017-09-27] MEDS: MULTIVITAMINS/MINERALS TAB PO SCH (12:22)
[2017-09-27] MEDS ORDERED: IOPAMIDOL 610MG/1ML 300 MG/ML VIAL IV ONE (13:24)
[2017-09-27] MEDS: BALSAM PERU/CASTOR OIL 60 GM OINT...G. TP SCH (16:49)
[2017-09-27] MEDS ORDERED: WARFARIN SOD 5 MG TAB PO SCH (17:00)
[2017-09-27] MEDS: GABAPENTIN 100 MG CAP PO SCH (20:17)
[2017-09-28] VITALS (7 sets, daily range): BP systolic 102–129; BP diastolic 62–81
[2017-09-28 06:56] LABS: INR 1.24; PROTHROMBIN TIME 14.7 seconds (11.9-14.5)
[2017-09-28] MEDS: METOPROLOL TARTRATE 50 MG TAB PO SCH (08:17)
[2017-09-28] MEDS: AMIODARONE HCL 200 MG TAB PO SCH (08:17)
[2017-09-28] MEDS: LORATADINE 10 MG TAB PO SCH (08:17)
[2017-09-28] MEDS: PAROXETINE HCL 20 MG TAB PO SCH (08:17)
[2017-09-28] MEDS: ASPIRIN 325 MG TAB PO SCH (08:17)
[2017-09-28] MEDS: POTASSIUM CHLORIDE 10 MEQ TABCR PO SCH (08:17)
[2017-09-28] MEDS: FUROSEMIDE 40 MG TAB PO SCH (08:17)
[2017-09-28] MEDS: AMLODIPINE BESYLATE 10 MG TAB PO SCH (08:17)
[2017-09-28] MEDS: BALSAM PERU/CASTOR OIL 60 GM OINT...G. TP SCH ×2 (10:25→16:11)
[2017-09-28] MEDS: MULTIVITAMINS/MINERALS TAB PO SCH (11:49)
[2017-09-28] MEDS: GABAPENTIN 100 MG CAP PO SCH (21:21)
[2017-09-29] VITALS: BP 121/74
[2017-09-29 04:23] VITALS: BP 157/98
[2017-09-29 06:52] LABS: BASOPHILS % 0.5 % (0.0-1.0); EOSINOPHILS # (AUTO) 0.1 (0.0-0.4); EOSINOPHILS % 2.3 % (0.0-6.0); HEMATOCRIT 30.5 % (34.2-44.1); HEMOGLOBIN 10.1 g/dL (12.0-16.0); LYMPHOCYTES % 17.6 % (18.0-39.1); MEAN CORPUSCULAR HEMOGLOBIN 25.7 pg (28-32); MEAN CORPUSCULAR HGB CONC 33.1 g/dL (31-35); MEAN CORPUSCULAR VOLUME 77.6 fL (81-99); MONOCYTES # (AUTO) 0.6 (0.2-0.8); MONOCYTES % 11.3 % (4.4-11.3); NEUTROPHILS # (AUTO) 3.9 (2.1-6.9); NEUTROPHILS % 67.8 % (38.7-80.0); PLATELET COUNT 230 x10e3/uL (140-360); RED BLOOD COUNT 3.93 x10e6/uL (3.6-5.1); RED CELL DISTRIBUTION WIDTH 15.3 % (11.7-14.4)
[2017-09-29 07:06] LABS: ANION GAP 13.8 mmol/L (8-16); CALCIUM 8.9 mg/dL (8.4-10.2); CREATININE, SERUM 1.15 mg/dL (0.57-1.11); POTASSIUM 3.8 mmol/L (3.5-5.1)
[2017-09-29 08:01] VITALS: BP 116/82
[2017-09-29] MEDS ORDERED: BALSAM PERU/CASTOR OIL 60 GM OINT...G. TP SCH (09:00)
[2017-09-29] MEDS: AMLODIPINE BESYLATE 10 MG TAB PO SCH (09:00)
[2017-09-29] MEDS: FUROSEMIDE 40 MG TAB PO SCH (09:00)
[2017-09-29] MEDS: AMIODARONE HCL 200 MG TAB PO SCH (09:00)
[2017-09-29] MEDS: METOPROLOL TARTRATE 50 MG TAB PO SCH (09:00)
[2017-09-29] MEDS: LORATADINE 10 MG TAB PO SCH (09:00)
[2017-09-29] MEDS: ASPIRIN 325 MG TAB PO SCH (09:00)
[2017-09-29] MEDS: POTASSIUM CHLORIDE 10 MEQ TABCR PO SCH (09:00)
[2017-09-29] MEDS: PAROXETINE HCL 20 MG TAB PO SCH (09:00)
[2017-09-29 09:20] VITALS: BP 116/82
[2017-09-29] MEDS ORDERED: METOPROLOL TART50 MG PO (11:35)
[2017-09-29 12:00] VITALS: BP 96/53
[2017-09-29] MEDS: MULTIVITAMINS/MINERALS TAB PO SCH (12:30)
[2017-09-29] MEDS ORDERED: AMIODARONE HCL200 MG PO (16:32)
[2017-09-29] MEDS ORDERED: LASIX40 MG PO (16:33)
[2017-09-29] MEDS ORDERED: ZOFRAN ODT4 MG SL (16:34)
--- NOTE | 2017-09-29 16:37 | Discharge Summary ---
PRIMARY CARE PROVIDER: Dr. Karl Ball. DEMOLITION HAMMER OPERATOR: Dr. Tong Solis. FINAL DIAGNOSES: 1. Paroxysmal atrial fibrillation with rapid ventricular rate response, controlled now status post amiodarone treatment, now normal sinus rhythm. 2. Patient and family refused anticoagulant therapy, stay on aspirin. 3. Multiple chronic baseline problems. SUMMARY: An 82-year-old female came in with rapid ventricular rate response, heart rate in the 130 to 140, atrial fibrillation. Patient did better. The heart rate controlled now. She did receive amiodarone. Now normal sinus rhythm. EF approximately 60%. Patient stable. She was ambulatory with assistance, now ambulatory by herself. She will go home today. Home health has been arranged for 5 days per week for the first week, 4 days a week for the second week, and then 3 days a week for the third week per request from patient's insurance and is approved. She will go home today, follow up as an outpatient. She will take amiodarone 200 mg daily. Lasix 40 mg q.a.m. Zofran ODT 4 mg sublingual q.4 p.r.n. Home medications she will continue including Norvasc 10 mg daily, aspirin 325 mg daily, Aricept 10 mg at night, gabapentin 100 mg at night, Claritin 10 mg daily, metoprolol tartrate 50 mg b.i.d., multivitamin, Paxil 30 mg daily, potassium 10 mEq daily. Patient is to stop the furosemide 20 mg daily, lisinopril 40 mg daily and the metoprolol tartrate 50 mg daily. Those medications have been adjusted. The patient to follow up Dr. Karl Ball next week. She will follow up with Dr. Solis in approximately 7 days. Diet as tolerated. Activity, physical therapy as tolerated. Job#: [id number] [facility]
[2017-09-29 16:47] VITALS: BP 103/71
== END 2017-09-29 17:45 | disposition home or self-care (01) | DRG 308 ==
LOC: ER 14:52 → ERHOLD 18:29 → MED/SURG 19:32
PROVIDERS: ADMIT Internal Medicine; ATTEND Internal Medicine
DX: I48.0 Paroxysmal atrial fibrillation (principal); I50.21 Acute systolic (congestive) heart failure; J44.9 Chronic obstructive pulmonary disease, unspecified; I11.0 Hypertensive heart disease with heart failure
CPT/HCPCS: 36415; 51700; 71045; 80048; 80053; 80061; 81001; 82306; 82550; 82553; 82607; 82746; 83735; 83880; 84100; 84443; 84484; 84550; 85025; 85610; 85730; 87086; 93005; 93306; 99284; J1160; J1650; J1940; J7030